=== PATIENT | female | born 1965 | race Caucasian/White ===

== ENCOUNTER 2017-04-15 22:27 | Emergency (ER) | payer BC, MEDICAID ==
[~2017-04-15] VITALS: Ht 165.1 cm; Wt 126.6 kg
[2017-04-15 22:29] VITALS: BP 155/100
--- NOTE | 2017-04-15 23:13 | NUR ---
TO ER BED 3
--- NOTE | 2017-04-15 23:18 | NUR ---
51 Y/O F W/C/O OF SWELLING TO R MANDIBLE X A FEW HRS AGO. DENIES ANY INJURY, INSECT BITE OR PAIN. DENIES ANY DIZZINESS, OR NUMBNESS. VSS, NO S/S OF DISTRESS NOTED AT THE MOMENT.
--- NOTE | 2017-04-16 | NUR ---
MOVED TO ER OF1
[2017-04-16] MEDS ORDERED: oxyCODONE/APAP 5/325 MG 1 TAB TAB PO ONE (02:50)
--- NOTE | 2017-04-16 03:30 | NUR ---
Patient discharged with v/s stable. Written and verbal after care instructions given and explained. Patient alert, oriented and verbalized understanding of instructions. Ambulatory with steady gait. All questions addressed prior to discharge. ID band removed. Patient advised to follow up with PMD. Rx of MOTRIN 800 MG, AUGMENTIN 875 MG given. Patient educated on indication of medication including possible reaction and side effects. Opportunity to ask questions provided and answered.
[2017-04-16 03:33] VITALS: BP 142/94
== END 2017-04-16 03:30 | disposition home or self-care (01) ==
LOC: MED 22:27
DX: K11.21 Acute sialoadenitis (principal)
CPT/HCPCS: 70486; 70490; 81025; 99284

== ENCOUNTER 2017-06-01 20:05 | Emergency (ER) | payer MEDICAID ==
[~2017-06-01] VITALS: Ht 152.4 cm; Wt 131.1 kg
[2017-06-01 20:05] VITALS: BP 155/88
--- NOTE | 2017-06-01 20:12 | NUR ---
PATIENT AMBULATED TO ER OF3.
--- NOTE | 2017-06-01 20:23 | NUR ---
PATIENT BEING EVALUATED BY DR. HASKINS.
[2017-06-01] MEDS ORDERED: KETOROLAC 60 MG/2 ML VIAL IM ONE (21:10)
[2017-06-01 22:00] VITALS: BP 142/84
== END 2017-06-01 22:00 | disposition home or self-care (01) ==
LOC: MED 20:05
DX: M75.31 Calcific tendinitis of right shoulder (principal); R03.0 Elevated blood-pressure reading, without diagnosis of hypertension
CPT/HCPCS: 73030; 96372; 99284; J1885

== ENCOUNTER 2019-01-18 08:05 | Emergency (ER) | payer MEDICAID ==
[~2019-01-18] VITALS: Ht 165.1 cm; Wt 139.4 kg
[2019-01-18 08:05] VITALS: BP 146/84
--- NOTE | 2019-01-18 08:11 | NUR ---
Patient ambulated to bed 2. RN evaluating patient at bedside.
--- NOTE | 2019-01-18 08:12 | NUR ---
AAO X 4 53 YR OLD F AMBULATES TO BED 2 WITH C/O NON RADIATING LT LOWER BACK PAIN 7/10 X 2 DAYS WORSE LAST NIGHT. DENIES BURNING URINATION OR NVD HX; HTN, DM RX; LOSARTAN, GABAPENTIN
--- NOTE | 2019-01-18 08:25 | NUR ---
Dr Helton evaluating aao x4 pt at bedside
--- NOTE | 2019-01-18 08:25 | NUR ---
PT GIVEN URINE BOTTLE BUT UNABLE TO PROVIDE URINCE SPECIMEN AT THIS TIME, NOTIFIED
[2019-01-18] MEDS ORDERED: cefTRIAXone 1,000 MG in LIDOCAINE MPF 1% - 5 mL VIAL 2.1 ML IM ONE (09:05)
[2019-01-18 09:32] LABS: BILIRUBIN,URINE NEGATIVE (NEGATIVE); BLOOD, URINE 2+ (NEGATIVE); COLOR,URINE YELLOW (YELLOW); LEUKOCYTE ESTERASE ,URINE 3+ (NEGATIVE); NITRITE, URINE POSITIVE (NEGATIVE); PH,URINE 6.5 (5.0-9.0); UGLUCOSE NEGATIVE (NEGATIVE)
[2019-01-18 09:33] LABS: APPEARANCE,URINE CLOUDY (CLEAR)
[2019-01-18 09:35] LABS: RBC,URINE 11-20 (MOD) /HPF (0-5); WBC,URINE 60-80 /HPF (0-5)
[2019-01-18 09:36] LABS: URINE AMORPHOUS URATE 1+ /HPF (None Seen)
[2019-01-18 09:40] VITALS: BP 115/69
--- NOTE | 2019-01-18 09:40 | NUR ---
Patient discharged with v/s stable. Written and verbal after care instructions given and explained. Patient alert, oriented and verbalized understanding of instructions. Ambulatory with steady gait. All questions addressed prior to discharge. ID band removed. Patient advised to follow up with PMD. Rx of [place], Ciprofloxacin, Pyridium given. Patient educated on indication of medication including possible reaction and side effects. Opportunity to ask questions provided and answered.
== END 2019-01-18 09:40 | disposition home or self-care (01) ==
LOC: MED 08:05
DX: N39.0 Urinary tract infection, site not specified (principal); E11.9 Type 2 diabetes mellitus without complications; I10 Essential (primary) hypertension
CPT/HCPCS: 81001; 81025; 87086; 87186; 96372; 99283; J0696; J2001

== ENCOUNTER 2019-04-13 21:42 | Emergency (ER) | payer MEDICAID ==
[~2019-04-13] VITALS: Ht 162.6 cm; Wt 139.3 kg
[2019-04-13 22:00] VITALS: BP 136/75
--- NOTE | 2019-04-13 22:49 | NUR ---
PT AMBULATED TO ER BED 01
--- NOTE | 2019-04-13 23:16 | NUR ---
53/F PRESENTS TO ED WITH DAUGHTER, C/O R MID BACK PAIN, X3 DAYS. REPORTS BEING SEEN 2 WEEKS AGO WITH L MID BACK PAIN THAT HAS RESOLVED, DX UTI. PT REPORTS CHILLS, DENIES FEVER, REPORTS VOMITING AND DIARRHEA X2 DAYS, DECREASED APPETITE. PT AWAKE AND ALERT, SKIN NORMAL WARM AND DRY, RR EVEN AND UNLABORED. HX DM, HTN RX LOSARTAN, GENUVIA, NORCO WITHOUT RELIEF.
--- NOTE | 2019-04-14 00:49 | NUR ---
8 FR STRAIGHT CHANEY CATHETER, STERILE PROCEDURE USED, PT TOLERATED WELL. 10CC YELLOW CLOUDY URINE RETURNED.
[2019-04-14] MEDS ORDERED: KETOROLAC 60 MG/2 ML VIAL IM ONE (01:10)
--- NOTE | 2019-04-14 01:20 | NUR ---
PT LAYING IN BED, FAMILY AT BEDSIDE. REPORTS 03/03 R MID BACK PAIN, RR EVEN AND UNLABORED. VS NOTED, HR [id number], DR MOURA MADE AWARE
[2019-04-14] MEDS ORDERED: KETOROLAC 30 MG/ML VIAL ONE (01:25)
[2019-04-14] MEDS ORDERED: NACL 0.9% 1,000 ML IV ONE (01:30)
[2019-04-14 02:11] VITALS: BP 104/62
--- NOTE | 2019-04-14 02:11 | NUR ---
Patient discharged with v/s stable. Written and verbal after care instructions given and explained. Patient alert, oriented and verbalized understanding of instructions. Ambulatory with steady gait. All questions addressed prior to discharge. ID band removed. Patient advised to follow up with PMD. Rx of MOTRIN, NORCO, CIPRO given. Patient educated on indication of medication including possible reaction and side effects. Opportunity to ask questions provided and answered.
== END 2019-04-14 02:11 | disposition home or self-care (01) ==
LOC: MED 21:42
DX: N39.0 Urinary tract infection, site not specified (principal); R11.2 Nausea with vomiting, unspecified; E11.9 Type 2 diabetes mellitus without complications; I10 Essential (primary) hypertension
CPT/HCPCS: 81002; 96360; 96372; 99283; J1885; J7030

== ENCOUNTER 2024-01-28 14:41 | Emergency (ER) | payer MEDICAID ==
[~2024-01-28] VITALS: Ht 167.6 cm; Wt 135.9 kg
[2024-01-28 15:12] VITALS: BP 121/79; PULSE 82; RESP 19; TEMP 97.4; O2SAT 97
[2024-01-28 18:18] VITALS: TEMP 97.9
[2024-01-28 18:48] LABS: BASOPHILS # (AUTO) 0.1 K/uL (0.00-0.22); BASOPHILS % (AUTO) 1.1 % (0.0-2.0); EOSINOPHILS # (AUTO) 0.2 K/uL (0-0.4); EOSINOPHILS % (AUTO) 1.8 % (0.0-4.0); HEMATOCRIT 45.8 % (36-48); HEMOGLOBIN 15.2 g/dL (12.0-16.0); LYMPHOCYTES # (AUTO) 2.7 K/uL (2.5-16.5); LYMPHOCYTES % (AUTO) 30.5 % (20.5-51.1); MEAN CORPUSCULAR HEMOGLOBIN 26 pg (27-31); MEAN CORPUSCULAR HGB CONC 33 g/dL (33-37); MEAN CORPUSCULAR VOLUME 79.1 fL (80-94); MONOCYTES # (AUTO) 0.5 K/uL (0.8-1.0); NEUTROPHILS # (AUTO) 5.3 K/uL (1.8-7.7); NEUTROPHILS % (AUTO) 60.6 % (42.2-75.2); PLATELET COUNT (AUTO) 216 K/uL (140-450); RED BLOOD CELL COUNT(AUTO) 5.79 MIL/uL (4.20-5.40); RED CELL DISTRIBUTION WIDTH 14.8 % (11.6-13.7); WHITE BLOOD COUNT (AUTO) 8.8 K/uL (4.8-10.8)
[2024-01-28] MEDS: ACETAMINOPHEN EXTRA STRENGTH 500 MG TAB PO ONE (19:00)
[2024-01-28] MEDS: CYCLOBENZAPRINE 10 MG TAB PO ONE (19:02)
[2024-01-28 19:14] LABS: ANION GAP 11.9 (8-16); CALCIUM 10.4 mg/dL (8.5-10.1); CARBON DIOXIDE 29.5 mmol/L (21-32); CREATININE 1.3 mg/dL (0.6-1.3); POTASSIUM 4.4 mmol/L (3.5-5.1); TOTAL BILIRUBIN 0.4 mg/dL (0.0-1.0); TOTAL PROTEIN, SERUM 7.6 g/dL (6.4-8.2)
[2024-01-28 20:30] VITALS: BP 113/65; PULSE 75; RESP 16; O2SAT 96
== END 2024-01-28 20:30 | disposition home or self-care (01) ==
LOC: MED 14:41
DX: M79.661 Pain in right lower leg (principal); R22.41 Localized swelling, mass and lump, right lower limb; E11.9 Type 2 diabetes mellitus without complications; I10 Essential (primary) hypertension; Z79.4 Long term (current) use of insulin; Z79.899 Other long term (current) drug therapy
CPT/HCPCS: 36415; 80053; 85025; 93971; 99285; Q0092